=== PATIENT | female | born 1965 | race Caucasian/White ===

== ENCOUNTER 2017-10-30 19:26 | Emergency (ER) | payer OTHER ==
[~2017-10-30] VITALS: Ht 162.6 cm; Wt 90.7 kg
[~2017-10-30 19:26] MED LIST: COUMADIN 5 MG TA5 MG PO; HYDROCODONE/ACE1 TAB PO; LOVENOX 10100 MG/1 M SC; MOTRIN 800MG T800 MG PO; TYLENOL TAB 32325 MG PO; VICODIN5-300 PO
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
[2017-10-30] MEDS ORDERED: ROBAXIN-750750 M1 PO (21:02)
[2017-10-30 21:18] VITALS: BP 147/85
== END 2017-10-30 21:42 ==
LOC: ERH 19:26
DX: M54.2 Cervicalgia (principal); M25.522 Pain in left elbow
CPT/HCPCS: 73080-LT; 73562-LT